=== PATIENT | male | born 1955 | race Caucasian/White ===

== ENCOUNTER → 2018-10-04 | Outpatient (CLI) | payer OTHER ==
[~2018-10-04] MED LIST: ALLO300 PO; CHOL10002 PO; Chest Congesti400 MG PO; DIAZ2 PO; Dexamethasone1 MG PO; LORA.5 PO; Probenecid-Col1 EACH PO
== END | disposition home or self-care (01) ==
LOC: LAB SHORT 14:21 → PLD 14:21
DX: C78.00 Secondary malignant neoplasm of unspecified lung (principal); C79.9 Secondary malignant neoplasm of unspecified site
CPT/HCPCS: 88173

== ENCOUNTER 2018-10-26 07:17 | Day surgery (SDC) | payer OTHER ==
[~2018-10-26] VITALS: Ht 177.8 cm; Wt 64.0 kg
--- NOTE | 2018-10-26 08:00 | NUR ---
Ambulatory in Day Surgery History, Chart, Medications and Allergies reviewed before start of procedure.Lungs clear T/O to Auscultation. Patient confirms NPO status and agrees with scheduled surgery. Patient reports completing Chlorhexadine shower X2 prior to admission to hospital.Surgical site prepped with 2% Chlorhexidine cloth wipe. Patient States Post-Procedure ride home has been arranged.
--- NOTE | 2018-10-26 11:15 | NUR ---
Discharge instructions reviewed with patient. Patient verbalizes understanding. Copy given to patient to take home. Discharged via wheelchair to private car for ride home.PATIENT AND S/O DENY ANY QUESTIONS OR CONCERNS R/T DISCHARGE
== END 2018-10-26 12:00 | disposition home or self-care (01) ==
LOC: ORSCMMR 07:17
PROVIDERS: Surgery
PROC: B5131ZA Fluoroscopy of Right Jugular Veins using Low Osmolar Contrast, Guidance (ICD-10-PCS; principal; 2018-10-26 09:00)
PROC: 05HM33Z Insertion of Infusion Device into Right Internal Jugular Vein, Percutaneous Approach (ICD-10-PCS; principal; 2018-10-26 09:00)
DX: C10.9 Malignant neoplasm of oropharynx, unspecified (principal); I10 Essential (primary) hypertension; R01.1 Cardiac murmur, unspecified; R06.02 Shortness of breath; Z79.899 Other long term (current) drug therapy
CPT/HCPCS: 77001; C1788; J0690; J1100; J1642; J2250; J2405; J3010; J7120

== ENCOUNTER 2018-10-30 09:14 | Day surgery (SDC) | payer OTHER ==
--- NOTE | 2018-10-30 12:25 | NUR ---
PT DENIES ANY PAIN, NAUSEA, SOB. SITE TO R CHECT WALL WITH BANDAID CLEAN DRY INTAT. NO SWELLING. PT REQUESTING TO AMBULATE OUTR
== END 2018-10-30 22:40 | disposition home or self-care (01) ==
LOC: CT 09:14
DX: C78.7 Secondary malignant neoplasm of liver and intrahepatic bile duct (principal); C10.9 Malignant neoplasm of oropharynx, unspecified; C78.02 Secondary malignant neoplasm of left lung; C78.01 Secondary malignant neoplasm of right lung; Z88.5 Allergy status to narcotic agent; I10 Essential (primary) hypertension; M19.90 Unspecified osteoarthritis, unspecified site; M10.9 Gout, unspecified; Z85.810 Personal history of malignant neoplasm of tongue
CPT/HCPCS: 47000; 77012; 88307; 88342

== ENCOUNTER 2019-01-16 21:00 | Inpatient (IN) | payer OTHER ==
[~2019-01-16] VITALS: Ht 172.7 cm; Wt 64.6 kg
[2019-01-16 22:28] LABS: Hematocrit 28.9 % (37.0-53.0); Hemoglobin 9.5 g/dL (13.5-17.5); Mean Corpuscular HGB 33.3 pg (26.0-34.0); Mean Corpuscular HGB Conc 32.9 g/dL (31.5-36.5); Mean Platelet Volume 9.9 fL (9.1-12.4); Platelet Count 251 K/mm3 (150-400); RDW Standard Deviation 80.2 fL (35.1-46.3); Red Blood Cell Count 2.85 M/mm3 (4.30-5.90); White Blood Cell Count 25.49 K/mm3 (4.00-11.30)
[2019-01-16 22:30] LABS: Mean Corpuscular Volume 101 fL (80-100)
[2019-01-16 22:41] LABS: Alanine Aminotransfer (ALT/SGP 20 U/L (12-78); Albumin, Blood 3.3 g/dL (3.4-5.0); Albumin/Globulin Ratio 0.9 (0.8-1.8); Alk Phos 101 U/L (50-136); Anion Gap 18 mmol/L (6-16); Aspartate Aminotrans (AST/SGOT 11 U/L (12-37); Bilirubin, Total 0.2 mg/dL (0.1-1.0); Blood Urea Nitrogen 36 mg/dL (8-24); Bun/Creatinine Ratio 35.3 (12.0-20.0); CO2, Blood 17 mmol/L (21-32); Calcium, Blood 8.2 mg/dL (8.5-10.1); Chloride, Blood 99 mmol/L (98-108); Creatinine, Blood 1.02 mg/dL (0.60-1.20); Globulin, Blood 3.6 g/dL (2.2-4.0); Glomerular Filtration Rate >60 (60-); Glucose, Blood 188 mg/dL (70-99); Potassium, Blood 4.4 mmol/L (3.5-5.5); Sodium, Blood 134 mmol/L (136-145); Total Protein, Blood 6.9 g/dL (6.4-8.2)
[2019-01-16 22:48] LABS: BAND PERCENT MAN 10 % (0-8); BASOPHILS PERCENT MAN 0 % (0-2); EOSINOPHILS PERCENT MAN 0 % (0-6); LYMPHOCYTES ABSOLUTE MAN 2.29 K/mm3 (0.84-5.20); LYMPHOCYTES PERCENT MAN 9 % (21-46); MONOCYTES PERCENT MAN 2 % (4-13); NEUTROPHILS ABSOLUTE MAN 22.68 K/mm3 (1.96-9.15); SEG NEUTROPHILS PERCENT MAN 79 % (41-73); TOTAL CELLS COUNTED 100
--- NOTE | 2019-01-17 02:08 | NUR ---
0208 ADMIT: PT ARRIVES FROM ER VIA GOURNEY WITH SOSIVAN, @ BEDSIDE; TRANSFERS SELF TO BED AND APPEARS IMPULSIVE AND MILDLY UNSTEADY. PT DENIES DIZZINESS, LIGHTHEADEDNESS OR SOB WITH TRANSFER AND AMBULATION INTO ROOM. PT AND SO EDUCATED R/T ROOM, BED, CALL LIGHT AND FALL PRECAUTIONS. PT URINAL PLACED AT BEDSIDE AND BED ALARM ENGAGED. PT ADMITS TO BEING IMPULSIVE AND FORGETFUL @ TIMES AND AGREES TO USE CALL LIGHT PRIOR TO BRP OR GETTING OUT OF BED.
[2019-01-17] MEDS ORDERED: LORA.5 PO (02:18)
--- NOTE | 2019-01-17 02:43 | NUR ---
0243: TELE BOX VERIFIED WITH Edgard GAONA TECH IN PCU. PT NSR @ 61 BPM.
--- NOTE | 2019-01-17 07:37 | NUR ---
SUMMARY: NEW ADMIT SEIZURE ACTIVITY ON HOSPITALIST SERVICE. NO SEIZURE ACTIVITY NOTED THIS SHIFT, VSS, ROOM AIR, AFEBRILE, TELE NS IN 60'S. PT USES CALL LIGHT APPROPRIATELY, REMAINS A&O X4. AWAIT PT VOID FOR URINE SPECIMEN COLLECTION.
[2019-01-17 09:30] LABS: Source, Urine Voided
[2019-01-17 09:40] LABS: Appearance, Urine Clear (Clear); Bilirubin, Urine Neg (Neg); Blood, Urine Neg (Neg); Color, Urine Yellow (P-Yellow); Glucose Qualitative, Urine Neg (Neg); Ketones, Urine Neg (Neg); Leukocyte Esterase, Urine Neg (Neg); Nitrite, Urine Neg (Neg); Protein, Urine Neg (Neg); Urobilinogen, Urine NORM (Normal); pH, Urine 6.5 (5.0-8.0)
[2019-01-17 09:49] LABS: Alanine Aminotransfer (ALT/SGP 18 U/L (12-78); Albumin, Blood 3.1 g/dL (3.4-5.0); Albumin/Globulin Ratio 0.9 (0.8-1.8); Alk Phos 92 U/L (50-136); Anion Gap 7 mmol/L (6-16); Aspartate Aminotrans (AST/SGOT 14 U/L (12-37); Bilirubin, Total 0.4 mg/dL (0.1-1.0); Blood Urea Nitrogen 28 mg/dL (8-24); Bun/Creatinine Ratio 29.4 (12.0-20.0); CO2, Blood 25 mmol/L (21-32); Calcium, Blood 8.2 mg/dL (8.5-10.1); Chloride, Blood 99 mmol/L (98-108); Creatinine, Blood 0.95 mg/dL (0.60-1.20); Globulin, Blood 3.4 g/dL (2.2-4.0); Glomerular Filtration Rate >60 (60-); Glucose, Blood 89 mg/dL (70-99); Sodium, Blood 131 mmol/L (136-145); Total Protein, Blood 6.5 g/dL (6.4-8.2)
[2019-01-17 09:58] LABS: Hematocrit 26.6 % (37.0-53.0); Hemoglobin 8.7 g/dL (13.5-17.5); Mean Corpuscular HGB 32.2 pg (26.0-34.0); Mean Corpuscular HGB Conc 32.7 g/dL (31.5-36.5); Mean Corpuscular Volume 99 fL (80-100); Mean Platelet Volume 9.7 fL (9.1-12.4); Platelet Count 215 K/mm3 (150-400); RDW Coefficient Variation 21.8 % (11.7-14.2); RDW Standard Deviation 77.3 fL (35.1-46.3); White Blood Cell Count 17.07 K/mm3 (4.00-11.30)
--- NOTE | 2019-01-17 19:13 | NUR ---
PT A/OX3, PLEASANT AND COOPERATIVE, THE PT IS UP WITH 1 ASSIST TO THE BATHROOM, THE PT APPEARED TO BE BREATHING EASILY T/O THE SHIFT, THE PT DENIED ANY PAIN TODAY, THIS AFTERNOON THE PT HAD AN EPISODE IN WHICH HE WAS HALUCINATING AND HAD A BLANK STARE ON HIS FACE, DID NOT APPEAR TO BE SEIZURE ACTIVTY AT THAT TIME, FAMILY HAS BEEN WITH THE PT T/O THE DAY, DR. ONEIL WAS CONSULTED THIS AM, HOWEVER HAS NOT BEEN IN TO SEE THE PT SO FAR THIS SHIFT, CALL LIGHT IN REACH, WILL CONTINUE TO MONITOR AND ASSESS FOR CHANGES
--- NOTE | 2019-01-18 04:59 | NUR ---
SHIFT SUMMARY PT SLEPT FAIR, REQUESTED HOME DOSE OF PO ATIVAN SO THAT HE COULD SLEEP. HOSPITALIST CALLD AND ORDER RECEIVED. IVF'S INFUSING PER PUMP WITHOUT DIFFICULTY. WENT HOME FOR THE NIGHT. PT REQUESTED TYLENOL FOR THE CHILLS EARLY ON IN THE EVENING. TELE SHOWS NSR. NO ACUTE EVENTS NOTED DURING THE NIGHT, WILL CONTINUE TO MONITOR.
[2019-01-18 05:06] LABS: BASOPHILS ABSOLUTE AUTO 0.02 K/mm3 (0.00-0.23); BASOPHILS PERCENT AUTO 0 % (0-2); EOSINOPHILS ABSOLUTE AUTO 0.01 K/mm3 (0.00-0.68); EOSINOPHILS PERCENT AUTO 0 % (0-6); Hemoglobin 8.4 g/dL (13.5-17.5); IMMATURE GRAN ABSOLUTE AUTO 0.12 K/mm3 (0.00-0.10); IMMATURE GRAN PERCENT AUTO 1 % (0-1); LYMPHOCYTES ABSOLUTE AUTO 2.07 K/mm3 (0.84-5.20); LYMPHOCYTES PERCENT AUTO 16 % (21-46); MONOCYTES ABSOLUTE AUTO 0.58 K/mm3 (0.16-1.47); MONOCYTES PERCENT AUTO 5 % (4-13); Mean Corpuscular HGB 33.3 pg (26.0-34.0); Mean Corpuscular HGB Conc 33.6 g/dL (31.5-36.5); Mean Corpuscular Volume 99 fL (80-100); Mean Platelet Volume 9.2 fL (9.1-12.4); NEUTROPHILS ABSOLUTE AUTO 10.04 K/mm3 (1.96-9.15); NEUTROPHILS PERCENT AUTO 78 % (41-73); Platelet Count 176 K/mm3 (150-400); RDW Coefficient Variation 20.9 % (11.7-14.2); RDW Standard Deviation 75.5 fL (35.1-46.3); Red Blood Cell Count 2.52 M/mm3 (4.30-5.90); White Blood Cell Count 12.84 K/mm3 (4.00-11.30)
[2019-01-18 05:58] LABS: Albumin, Blood 2.9 g/dL (3.4-5.0); Anion Gap 8 mmol/L (6-16); Blood Urea Nitrogen 21 mg/dL (8-24); Bun/Creatinine Ratio 25.1 (12.0-20.0); CO2, Blood 26 mmol/L (21-32); Calcium, Blood 7.6 mg/dL (8.5-10.1); Chloride, Blood 94 mmol/L (98-108); Creatinine, Blood 0.84 mg/dL (0.60-1.20); Glomerular Filtration Rate >60 (60-); Glucose, Blood 86 mg/dL (70-99); Phosphorus, Blood 3.1 mg/dL (2.5-4.9); Potassium, Blood 3.3 mmol/L (3.5-5.5); Sodium, Blood 128 mmol/L (136-145)
--- NOTE | 2019-01-18 15:16 | NUR ---
Pt. is in bed resting doing delia burns pt.
--- NOTE | 2019-01-18 18:56 | NUR ---
NOTIFIED DR. CONN PT PULLED IV OUT AND IS CONFUSED. DR. CONN SAID TO PLACE ANOTHER IV FOR ANTIBIOTICS. NOTIFIED ROUTE SALES TRAINEE, SKYLAR PT PULLED OUT IV, UNSTEADY ON THEIR FEET, CONFUSED, ATTEMPTING TO GET OUT OF BED AND DOES NOT CALL APPROPRIATELY. PT MOVED TO SPECIAL CARE UNIT. REPORT GIVEN TO MARIAH WALLER.
--- NOTE | 2019-01-18 22:23 | NUR ---
PATIENT INCREASED CONFUSION. SPOUSE/RN REQUEST ATIVAN 1 MG PRN FOR THIS EVENING. HOSPITALIST DR MAIN ORDERED ATIVAN PO 1 MG X ONE.
--- NOTE | 2019-01-18 23:12 | NUR ---
FAMILY/FRIEND RN REPORTS PATIENT HAVING VISUAL HALLUCINATIONS FOR FIRST TIME. WILL CONTINUE TO MONITOR.
--- NOTE | 2019-01-19 00:46 | NUR ---
PATIENT CONFUSION INCREASING. 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 PATIENT PULLING AT IV AND PULLED HUB OFF. PATIENT REPORTS HE WANTS TO GET UP AND EXIT BED. PATIENT PULLING AT TELE LEADS AND BP CUFF ATTACHED TO BED. PATIENT UNABLE TO REORIENT AT THIS TIME. RESTLESS ARM AND HANDS PULLING APART TELE BOX. BED ALARM ACITVATED. WILL CONTINUE TO MONITOR.
--- NOTE | 2019-01-19 00:56 | NUR ---
PATIENT HAVING VISUAL HALLUCINATIONS TALKING ABOUT A GOLF TOURNAMENT WITH NO ONE IN ROOM.
--- NOTE | 2019-01-19 01:10 | NUR ---
PATIENT BED EXIT AND RESISTING STAFF TO GET BACK INTO BED. PATIENT ASKING IF WE ARE TAKING FLYING LESSONS IN MORNING. PATIENT REORIENTED INTO BED. WILL CONTINUE TO MONITOR.
--- NOTE | 2019-01-19 02:50 | NUR ---
PATIENT HALLUCINATING AND SETTING OFF BED ALARM SWINGING LEGS OFF BED TRYING TO EXIT X 3. PATIENT BACK INTO BED AND BED ALARM ACTIVATED.
--- NOTE | 2019-01-19 03:18 | NUR ---
HOSPITALIST DR MARIANO ORDERED RACHNA VEST AND BILATERAL SOFT WRIST RESTRAINTS. PATIENT WITH INCREASED AGITATION AND HOSPITALIST ORDERED ATIVAN .5 MG PO X ONE.
--- NOTE | 2019-01-19 03:40 | NUR ---
SHIFT SUMMARY PATIENT IS HAVING INCREASED CONFUSION AND VISUAL HALLUCINATIONS. SIGNIFICANT OTHER-RN REPORTS THESE ARE BOTH NEW. ALSO NOTED IS INCREASED RESTLESS ARMS AND HANDS PULLING AT IV, CORDS, TELE LEADS AND TELE BOX PULLED APART. PATIENT PULLING AT SIDE RAILS AND INCREASE AGIATATION. PATIENT NOT ABLE TO REORIENT AT THIS TIMES. HOSPITALIST DR MARIANO ORDERED RACHNA VEST AND BILATERAL SOFT WRIST RESTRAINTS. PIV REMAINS INTACT. IV ABX INFUSED. X RAY EXAMINER OF AIRCRAFT REPORTS NSR/PVC AT 84. TAKES MEDS WHOLE WITH WATER. DENIES PAIN, SOB, AND N/V. ATIVAN PO 1 MG GIVEN X ONE AT START OF SHIFT AND .5 MG ATIVAN PO GIVEN X ONE FOR AGITATION ORDERD BY HOSPITALIST. CALL LIGHT IN REACH. BED IN LOWEST POSITION. BED ALARM ACTIVATED. WILL CONTINUE TO MONITOR UNTIL DAY SHIFT NURSE ASSUMES CARE.
[2019-01-19 05:30] LABS: BASOPHILS ABSOLUTE AUTO 0.01 K/mm3 (0.00-0.23); BASOPHILS PERCENT AUTO 0 % (0-2); EOSINOPHILS ABSOLUTE AUTO 0.02 K/mm3 (0.00-0.68); EOSINOPHILS PERCENT AUTO 0 % (0-6); Hematocrit 26.5 % (37.0-53.0); Hemoglobin 9.2 g/dL (13.5-17.5); IMMATURE GRAN ABSOLUTE AUTO 0.05 K/mm3 (0.00-0.10); IMMATURE GRAN PERCENT AUTO 1 % (0-1); LYMPHOCYTES ABSOLUTE AUTO 2.43 K/mm3 (0.84-5.20); LYMPHOCYTES PERCENT AUTO 22 % (21-46); MONOCYTES ABSOLUTE AUTO 0.57 K/mm3 (0.16-1.47); MONOCYTES PERCENT AUTO 5 % (4-13); Mean Corpuscular HGB 33.2 pg (26.0-34.0); Mean Corpuscular HGB Conc 34.7 g/dL (31.5-36.5); Mean Platelet Volume 9.7 fL (9.1-12.4); NEUTROPHILS PERCENT AUTO 72 % (41-73); Platelet Count 169 K/mm3 (150-400); RDW Coefficient Variation 20.4 % (11.7-14.2); RDW Standard Deviation 70.4 fL (35.1-46.3); Red Blood Cell Count 2.77 M/mm3 (4.30-5.90); White Blood Cell Count 10.98 K/mm3 (4.00-11.30)
[2019-01-19 05:34] LABS: Mean Corpuscular Volume 96 fL (80-100)
--- NOTE | 2019-01-19 05:46 | NUR ---
PATIENT HAVING AUDITORY HALLUCINATIONS. WILL CONTINUE TO MONITOR.
[2019-01-19 05:47] LABS: Albumin, Blood 3.2 g/dL (3.4-5.0); Anion Gap 12 mmol/L (6-16); Blood Urea Nitrogen 26 mg/dL (8-24); Bun/Creatinine Ratio 27.8 (12.0-20.0); CO2, Blood 23 mmol/L (21-32); Calcium, Blood 7.9 mg/dL (8.5-10.1); Chloride, Blood 90 mmol/L (98-108); Creatinine, Blood 0.94 mg/dL (0.60-1.20); Glomerular Filtration Rate >60 (60-); Glucose, Blood 94 mg/dL (70-99); Phosphorus, Blood 2.4 mg/dL (2.5-4.9); Potassium, Blood 3.7 mmol/L (3.5-5.5); Sodium, Blood 125 mmol/L (136-145)
--- NOTE | 2019-01-19 18:43 | NUR ---
SHIFT SUMMARY PATIENT PLEASANT. STILL GAINING MORE CONFUSION. DOCTOR IS AWARE. ALL ANTIBIOTICS HAVE BEEN STOPPED AT THIS TIME AND FLUIDS HAVE BEEN STARTED.
--- NOTE | 2019-01-19 22:43 | NUR ---
LEFT SIDE PERIPHERAL VISION DEFICIT NOTED WHEN UP TO SHOWER. PATIENT NOT ABLE TO ORIENT TO LEFT SIDE WHEN ASKED. TAKES A FEW REMINDERS FOR PATIENT TO TURN TO LEFT.
--- NOTE | 2019-01-20 03:21 | NUR ---
SHIFT SUMMARY PATIENT HAVING NEW LEFT SIDE PERIPHERAL VISION DEFICIT. NOTED WHEN PATIENT UP TO TAKE A SHOWER AND NOT ABLE TO ORIENT TO THE LEFT SIDE WHEN GIVEN DIRECTIONS WHICH WAY TO TURN. SIGNIFICANT OTHER PRESENT FOR HALF THE SHIFT. AXOX 2-3 WITH CONFUSION. NO VISUAL OR AUDITORY HALLUCINATIONS NOTED. PIV REMAINS INTACT. NS INFUSING AT 30 mL/HR. DENIES PAIN, SOB, AND N/V. VSS/AFEBRILE. RESTRAINT MANAGEMENT. LESS AGITATION NOTED. PATIENT OUT OF RESTRAINTS WHEN SIGNIFICANT OTHER-RN PRESENT. CALL LIGHT IN REACH. BED IN LOWEST POSITION. BED ALARM ACTIVATED. WILL CONTINUE TO MONITOR UNTIL DAY SHIFT NURSE ASSUMES CARE.
[2019-01-20 05:08] LABS: BASOPHILS ABSOLUTE AUTO 0.01 K/mm3 (0.00-0.23); BASOPHILS PERCENT AUTO 0 % (0-2); EOSINOPHILS ABSOLUTE AUTO 0.04 K/mm3 (0.00-0.68); EOSINOPHILS PERCENT AUTO 1 % (0-6); Hematocrit 24.6 % (37.0-53.0); Hemoglobin 8.7 g/dL (13.5-17.5); IMMATURE GRAN ABSOLUTE AUTO 0.03 K/mm3 (0.00-0.10); IMMATURE GRAN PERCENT AUTO 1 % (0-1); LYMPHOCYTES ABSOLUTE AUTO 1.93 K/mm3 (0.84-5.20); LYMPHOCYTES PERCENT AUTO 38 % (21-46); MONOCYTES ABSOLUTE AUTO 0.34 K/mm3 (0.16-1.47); MONOCYTES PERCENT AUTO 7 % (4-13); Mean Corpuscular HGB 34.5 pg (26.0-34.0); Mean Corpuscular HGB Conc 35.4 g/dL (31.5-36.5); Mean Corpuscular Volume 98 fL (80-100); Mean Platelet Volume 9.6 fL (9.1-12.4); NEUTROPHILS ABSOLUTE AUTO 2.72 K/mm3 (1.96-9.15); NEUTROPHILS PERCENT AUTO 54 % (41-73); Platelet Count 145 K/mm3 (150-400); RDW Standard Deviation 71.6 fL (35.1-46.3); Red Blood Cell Count 2.52 M/mm3 (4.30-5.90); White Blood Cell Count 5.07 K/mm3 (4.00-11.30)
[2019-01-20 05:30] LABS: Albumin, Blood 2.8 g/dL (3.4-5.0); Anion Gap 10 mmol/L (6-16); Blood Urea Nitrogen 23 mg/dL (8-24); Bun/Creatinine Ratio 29.3 (12.0-20.0); CO2, Blood 23 mmol/L (21-32); Calcium, Blood 7.5 mg/dL (8.5-10.1); Chloride, Blood 91 mmol/L (98-108); Creatinine, Blood 0.79 mg/dL (0.60-1.20); Glomerular Filtration Rate >60 (60-); Glucose, Blood 93 mg/dL (70-99); Phosphorus, Blood 2.3 mg/dL (2.5-4.9); Potassium, Blood 3.5 mmol/L (3.5-5.5); Sodium, Blood 124 mmol/L (136-145)
--- NOTE | 2019-01-20 07:00 | NUR ---
RECEIVED REPORT FROM MARIAH DICKSON; PT CURRENTLY NOT IN RESTRAINTS. RESTING WITH EYES CLOSED; RR EVEN AND UNLABORED. BED ALARM ACTIVATED.
[2019-01-20 12:23] LABS: Anion Gap 9 mmol/L (6-16); Blood Urea Nitrogen 24 mg/dL (8-24); Bun/Creatinine Ratio 30.8 (12.0-20.0); CO2, Blood 23 mmol/L (21-32); Calcium, Blood 7.6 mg/dL (8.5-10.1); Chloride, Blood 92 mmol/L (98-108); Creatinine, Blood 0.78 mg/dL (0.60-1.20); Glomerular Filtration Rate >60 (60-); Glucose, Blood 139 mg/dL (70-99); Potassium, Blood 3.3 mmol/L (3.5-5.5); Sodium, Blood 124 mmol/L (136-145)
[2019-01-20 12:25] LABS: CHOL/HDL RATIO 5.3; Cholesterol 219 mg/dL (50-200); HDL Cholesterol 41 mg/dL (>39); LDL/HDL RATIO 3.6; Low Density Lipoprotein Chol 149 mg/dL (0-110); Triglycerides 144 mg/dL (30-160); Very Low Density Lipoprot Chol 28 mg/dL (6-32)
--- NOTE | 2019-01-20 14:06 | NUR ---
PT SLEEPING RR EVEN AND UNLABORED
[2019-01-20 16:28] LABS: Anion Gap 6 mmol/L (6-16); Blood Urea Nitrogen 24 mg/dL (8-24); Bun/Creatinine Ratio 27.5 (12.0-20.0); CO2, Blood 26 mmol/L (21-32); Calcium, Blood 7.5 mg/dL (8.5-10.1); Chloride, Blood 91 mmol/L (98-108); Creatinine, Blood 0.87 mg/dL (0.60-1.20); Glomerular Filtration Rate >60 (60-); Glucose, Blood 119 mg/dL (70-99); Potassium, Blood 3.9 mmol/L (3.5-5.5); Sodium, Blood 123 mmol/L (136-145)
--- NOTE | 2019-01-20 18:17 | NUR ---
SHIFT SUMMARY CANCER WITH METS. NEW CVA ON MRI TODAY. PERIPHERAL NEGLECT. 1-2 PERSON TRANSFER. EATING AND DRINKING WELL. CONFUSED. PT'S SIGNIFICANT OTHER IS [facility] HOSPICE NURSE. DECONDITIONED. PLEASANT, COOPERATIVE. NA LOW (123). INCONTINENT.
--- NOTE | 2019-01-21 00:51 | NUR ---
PATIENT ACTIVATED BED ALARM TRYING TO MOVE TO SIDE OF BED. RACHNA VEST READJUSTED. CALL LIGHT IN REACH.
--- NOTE | 2019-01-21 03:37 | NUR ---
SHIFT SUMMARY PATIENT HAD NO ACUTE CHANGES OBSERVED THIS SHIFT. FAMILY AND SIGNIFICANT OTHER-RN PRESENT FIRST HALF OF SHIFT. AXOX 2-3 W/CONFUSION. TAKES MEDS WHOLE WITH WATER. ONE ASSIST TO BATHROOM. VSS/AFEBRILE. DENIES PAIN, SOB, AND N/V. PIV REMAINS INTACT. LASIX 20 MG X ONE GIVEN PER EMAR. RESTRAINT MANAGEMENT. NO HALLUCINATIONS. NS INFUSING AT 50 mL/HR. PATIENT AGITATED FOR AN HOUR AND BACK RESTING. SOLAR INSTALLATION MANAGER REPORTS NSR 64. CALL LIGHT IN REACH. BED IN LOWEST POSITION. WILL CONTINUE TO MONITOR UNTIL DAY SHIFT NURSE ASSUMES CARE.
[2019-01-21 06:46] LABS: BASOPHILS PERCENT AUTO 0 % (0-2); EOSINOPHILS ABSOLUTE AUTO 0.05 K/mm3 (0.00-0.68); EOSINOPHILS PERCENT AUTO 1 % (0-6); Hematocrit 26.9 % (37.0-53.0); Hemoglobin 9.1 g/dL (13.5-17.5); IMMATURE GRAN ABSOLUTE AUTO 0.02 K/mm3 (0.00-0.10); IMMATURE GRAN PERCENT AUTO 0 % (0-1); LYMPHOCYTES ABSOLUTE AUTO 2.28 K/mm3 (0.84-5.20); LYMPHOCYTES PERCENT AUTO 49 % (21-46); MONOCYTES ABSOLUTE AUTO 0.42 K/mm3 (0.16-1.47); MONOCYTES PERCENT AUTO 9 % (4-13); Mean Corpuscular HGB 34.1 pg (26.0-34.0); Mean Corpuscular HGB Conc 33.8 g/dL (31.5-36.5); Mean Platelet Volume 9.3 fL (9.1-12.4); NEUTROPHILS ABSOLUTE AUTO 1.85 K/mm3 (1.96-9.15); NEUTROPHILS PERCENT AUTO 40 % (41-73); Platelet Count 135 K/mm3 (150-400); RDW Coefficient Variation 20.2 % (11.7-14.2); RDW Standard Deviation 75.3 fL (35.1-46.3); Red Blood Cell Count 2.67 M/mm3 (4.30-5.90); White Blood Cell Count 4.62 K/mm3 (4.00-11.30)
[2019-01-21 06:47] LABS: Mean Corpuscular Volume 101 fL (80-100)
[2019-01-21 07:08] LABS: Albumin, Blood 2.9 g/dL (3.4-5.0); Anion Gap 9 mmol/L (6-16); Blood Urea Nitrogen 20 mg/dL (8-24); Bun/Creatinine Ratio 25.4 (12.0-20.0); CO2, Blood 22 mmol/L (21-32); Calcium, Blood 7.7 mg/dL (8.5-10.1); Chloride, Blood 92 mmol/L (98-108); Creatinine, Blood 0.79 mg/dL (0.60-1.20); Glomerular Filtration Rate >60 (60-); Glucose, Blood 88 mg/dL (70-99); Phosphorus, Blood 2.1 mg/dL (2.5-4.9); Potassium, Blood 3.5 mmol/L (3.5-5.5); Sodium, Blood 123 mmol/L (136-145)
--- NOTE | 2019-01-21 11:35 | NUR ---
echocardiogram complete
--- NOTE | 2019-01-21 17:02 | NUR ---
SUMMARY PT HAD MRI HEAD YESTERDAY, DR MARMOLEJO EXPLAIN TO PT/FAMILY +CVA. HE HAS L EYE VISUAL DEFICITS/NEGLECT. L ARM UNCOORDINATION. WOOD TANK BUILDER & DORSIFLEX STRONG. PT/OT EVAL TODAY. ST EVAL, ORDER PUREE/NECTAR THICK DIET W SUPERVISION. PT IS ABLE TO ANSWER BASIC QUESTIONS, RECALL EVENTS, RECOGNIZE FAMILY HOWEVER @ X'S MAKES BIZZARE STATEMENTS, DISORIENTED. ECHO DONE TODAY. PT HAS HX TONGUE CA W METS, RECNT CHEMO TX, DR ONEIL IN TO SEE PT/FAMILY THIS AFTERNOON & DISCUSS FUTURE TX. VSS.
[2019-01-22 06:05] LABS: BASOPHILS PERCENT AUTO 0 % (0-2); EOSINOPHILS ABSOLUTE AUTO 0.03 K/mm3 (0.00-0.68); EOSINOPHILS PERCENT AUTO 1 % (0-6); Hematocrit 24.8 % (37.0-53.0); Hemoglobin 8.7 g/dL (13.5-17.5); IMMATURE GRAN ABSOLUTE AUTO 0.03 K/mm3 (0.00-0.10); IMMATURE GRAN PERCENT AUTO 1 % (0-1); LYMPHOCYTES ABSOLUTE AUTO 1.82 K/mm3 (0.84-5.20); LYMPHOCYTES PERCENT AUTO 38 % (21-46); MONOCYTES ABSOLUTE AUTO 0.43 K/mm3 (0.16-1.47); MONOCYTES PERCENT AUTO 9 % (4-13); Mean Corpuscular HGB 35.1 pg (26.0-34.0); Mean Corpuscular HGB Conc 35.1 g/dL (31.5-36.5); Mean Corpuscular Volume 100 fL (80-100); Mean Platelet Volume 9.6 fL (9.1-12.4); NEUTROPHILS ABSOLUTE AUTO 2.54 K/mm3 (1.96-9.15); NEUTROPHILS PERCENT AUTO 52 % (41-73); Platelet Count 146 K/mm3 (150-400); RDW Coefficient Variation 19.8 % (11.7-14.2); RDW Standard Deviation 72.1 fL (35.1-46.3); Red Blood Cell Count 2.48 M/mm3 (4.30-5.90); White Blood Cell Count 4.85 K/mm3 (4.00-11.30)
[2019-01-22 06:20] LABS: Albumin, Blood 2.8 g/dL (3.4-5.0); Anion Gap 10 mmol/L (6-16); Blood Urea Nitrogen 19 mg/dL (8-24); Bun/Creatinine Ratio 23.1 (12.0-20.0); CO2, Blood 22 mmol/L (21-32); Calcium, Blood 7.6 mg/dL (8.5-10.1); Chloride, Blood 94 mmol/L (98-108); Creatinine, Blood 0.82 mg/dL (0.60-1.20); Glomerular Filtration Rate >60 (60-); Glucose, Blood 87 mg/dL (70-99); Phosphorus, Blood 1.9 mg/dL (2.5-4.9); Potassium, Blood 3.2 mmol/L (3.5-5.5); Sodium, Blood 126 mmol/L (136-145)
--- NOTE | 2019-01-22 06:45 | NUR ---
SHIFT SUMMARY PATIENT IS ALERT AND ORIENTED TO SELF AND PLACE, HOWEVER SAYS RANDOM THINGS LIKE " HELP ME BUILD THIS DOOR FRAME". PATIENT NEGLECTS LEFT SIDE WITH EYE MOVEMENT, ARM, AND LEG. PATIENT IS ABLE TO STAND AND USES URINAL AND IS INCONTINENT. DOES NOT FOLLOW COMMANDS WELL, LIKELY DUE TO THE POOR COORDINATION ON LEFT SIDE. BILATERAL WRIST RESTRAINTS ON, PATIENT CONTINUED TO GET OUT OF THE BED WITHOUT CALLING. HARD TO REDIREC BACK TO BED. CALL LIGHT IN REACH. VITALS STABLE.
--- NOTE | 2019-01-22 17:35 | NUR ---
SUMMARY PT CONTINUES TO DEMONSTRATE L SIDED NEGLEGT, L VISUAL DEFICITS. L ARM CONTINUES UNCOORDINATED HOWEVER IMPROVED FROM PREVIOUS DAY. PARTICIPATED W PT/OT TODAY. UP IN CHAIR FOR ALL MEALS W SUPERVISION. INTERACT W MULT FAMILY MEMBERS/VISITORS. HE IS SOMEWHAT FATIGUED, NAPS INTERMITTANTLY. NA+, K+ LOW, IV SUPPLEMENTS PROVIDED. VSS. SOCSERV STATE PLAN FOR IRU WHEN APPROP.
--- NOTE | 2019-01-23 03:45 | NUR ---
SHIFT SUMMARY PT SLEEPING IN CHAIR AT BS DURING SHIFT REPORT. PT'S BESIDE HIM. PT LATER ASSISTED INTO BED BY REFRIGERATION INSTALLER. REMAINED IN RM UNTIL PT WENT TO SLEEP FOR THE NIGHT. PT C/O [place] "AT THE BASE OF THE NECK" AND WAS MEDICATED WITH TYLENOL. PT ALSO HAVING HICCUPS; MEDICATED WITH REGLAN PER REQUEST. MEDS ADMIN CRUSHED IN ICE CREAM. 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 PUREE DIET WITH THICKENED LIQUIDS. PT WITH FLAT AFFECT. HAS SOME DIFFICULTY FOLLOWING DIRECTIONS. L EYE VEERS FAR LEFT. L SIDE EXTREMITIES VERY WEAK. MEPILEX TO L HIP; PER SHIFT REPORT, L HIP ABRASIONS D/T BLISTERS FROM UNKNOWN CAUSE. PT CONTINUES TO REST QUIETLY. NO S/SX OF DISTRESS NOTED. RESP E/U. SR @ 69 PER TELE MX. CALL LT IN REACH.
[2019-01-23 04:57] LABS: BASOPHILS PERCENT AUTO 0 % (0-2); EOSINOPHILS ABSOLUTE AUTO 0.02 K/mm3 (0.00-0.68); EOSINOPHILS PERCENT AUTO 1 % (0-6); Hemoglobin 7.8 g/dL (13.5-17.5); IMMATURE GRAN ABSOLUTE AUTO 0.03 K/mm3 (0.00-0.10); IMMATURE GRAN PERCENT AUTO 1 % (0-1); LYMPHOCYTES ABSOLUTE AUTO 1.15 K/mm3 (0.84-5.20); LYMPHOCYTES PERCENT AUTO 26 % (21-46); MONOCYTES ABSOLUTE AUTO 0.25 K/mm3 (0.16-1.47); MONOCYTES PERCENT AUTO 6 % (4-13); Mean Corpuscular HGB 34.7 pg (26.0-34.0); Mean Corpuscular HGB Conc 35.5 g/dL (31.5-36.5); Mean Corpuscular Volume 98 fL (80-100); Mean Platelet Volume 9.8 fL (9.1-12.4); NEUTROPHILS ABSOLUTE AUTO 2.99 K/mm3 (1.96-9.15); NEUTROPHILS PERCENT AUTO 67 % (41-73); Platelet Count 157 K/mm3 (150-400); RDW Coefficient Variation 20.3 % (11.7-14.2); RDW Standard Deviation 72.6 fL (35.1-46.3); Red Blood Cell Count 2.25 M/mm3 (4.30-5.90); White Blood Cell Count 4.44 K/mm3 (4.00-11.30)
[2019-01-23 05:25] LABS: Albumin, Blood 2.6 g/dL (3.4-5.0); Anion Gap 9 mmol/L (6-16); Blood Urea Nitrogen 17 mg/dL (8-24); CO2, Blood 23 mmol/L (21-32); Calcium, Blood 7.7 mg/dL (8.5-10.1); Chloride, Blood 95 mmol/L (98-108); Creatinine, Blood 0.85 mg/dL (0.60-1.20); Glomerular Filtration Rate >60 (60-); Glucose, Blood 98 mg/dL (70-99); Phosphorus, Blood 2.8 mg/dL (2.5-4.9); Potassium, Blood 3.1 mmol/L (3.5-5.5); Sodium, Blood 127 mmol/L (136-145)
[2019-01-23 05:27] LABS: Magnesium, Blood 1.1 mg/dL (1.6-2.4)
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
--- NOTE | 2019-01-24 05:14 | NUR ---
SHIFT SUMMARY PT AWAKE WITH VISITORS IN AT START OF SHIFT. RECEIVED REPORT, PT TO RECIEVE 1 UNIT PRBC'S. PT'S INFORMED WHEN LEAVING AND SIGNED BLOOD CONSENT PER PT REQUEST. HS MEDS GIVEN AND BLOOD STARTED AFTER THAT. PT CO-OP. TOLERATED WELL. UP TO EOB DURING TRANSFUSION, NEEDING URINAL; SETTING BED ALARM OFF. PT RESTED WELL THRU OUT THE NIGHT. VS REMAINED STABLE. PT DENIED NEEDS. NO C/O. PER SHIFT REPORT, PT'S FRIENDS IN EARLIER IN THE DAY PROVIDED CANDY BARS AND STRAWS FOR DRINKING. PER REPORT, PT FOUND COUGHING AFTERWARDS BY DAY RN. STRAWS AND ERIKA REMOVED FOR PT SAFETY. PT FOUND WITH HICCUPS AGAIN AT START OF SHIFT LAST NIGHT. REGLAN GIVEN PER EMAR AND REQUEST. BED ALARM REMAINS ON FOR SAFETY. CALL LT IN REACH, THOUGH PT HAS NOT USED THIS SHIFT.
[2019-01-24 05:28] LABS: BASOPHILS ABSOLUTE AUTO 0.01 K/mm3 (0.00-0.23); BASOPHILS PERCENT AUTO 0 % (0-2); EOSINOPHILS ABSOLUTE AUTO 0.02 K/mm3 (0.00-0.68); EOSINOPHILS PERCENT AUTO 0 % (0-6); Hematocrit 25.7 % (37.0-53.0); Hemoglobin 8.9 g/dL (13.5-17.5); IMMATURE GRAN ABSOLUTE AUTO 0.03 K/mm3 (0.00-0.10); IMMATURE GRAN PERCENT AUTO 1 % (0-1); LYMPHOCYTES PERCENT AUTO 33 % (21-46); MONOCYTES ABSOLUTE AUTO 0.31 K/mm3 (0.16-1.47); MONOCYTES PERCENT AUTO 6 % (4-13); Mean Corpuscular HGB Conc 34.6 g/dL (31.5-36.5); Mean Corpuscular Volume 98 fL (80-100); Mean Platelet Volume 9.7 fL (9.1-12.4); NEUTROPHILS ABSOLUTE AUTO 3.16 K/mm3 (1.96-9.15); NEUTROPHILS PERCENT AUTO 60 % (41-73); Platelet Count 141 K/mm3 (150-400); RDW Coefficient Variation 19.7 % (11.7-14.2); RDW Standard Deviation 70.7 fL (35.1-46.3); Red Blood Cell Count 2.62 M/mm3 (4.30-5.90); White Blood Cell Count 5.23 K/mm3 (4.00-11.30)
[2019-01-24 05:52] LABS: Albumin, Blood 2.4 g/dL (3.4-5.0); Anion Gap 8 mmol/L (6-16); Blood Urea Nitrogen 19 mg/dL (8-24); Bun/Creatinine Ratio 22.2 (12.0-20.0); CO2, Blood 25 mmol/L (21-32); Calcium, Blood 7.9 mg/dL (8.5-10.1); Chloride, Blood 98 mmol/L (98-108); Creatinine, Blood 0.86 mg/dL (0.60-1.20); Glomerular Filtration Rate >60 (60-); Glucose, Blood 91 mg/dL (70-99); Magnesium, Blood 1.4 mg/dL (1.6-2.4); Phosphorus, Blood 1.9 mg/dL (2.5-4.9); Potassium, Blood 3.8 mmol/L (3.5-5.5); Sodium, Blood 131 mmol/L (136-145)
--- NOTE | 2019-01-24 07:00 | NUR ---
ASSUMED CARE OF PT- PER REPORT PT HIGH FALL RISK AND FREQUENTLY TRIES TO GET UP WITHOUT ASSISTANCE, HAD BEEN IN RESTRAINTS FOR SAFETY, BUT CURRENTLY IS NO LONGER IN RESTRAINTS. PER REPORT PT REQUESTED THAT SHE BE CALLED TO SIT WITH HIM 1:1 RATHER THAN USE RESTRAINTS. PT BEHAVIOR THIS MORNING IS PLEASENT, MILDLY CONFUSED.
--- NOTE | 2019-01-24 11:25 | NUR ---
PT HAD SOME ACTIVITY THAT LOOKED LIKE A SEIZURE. PT EYES ROLLED BACK, BREATHING BECAME EXTREMELY SHALLOW AND RAPID, HEAD TURNED TO THE LEFT AND FACE PULLED TO THE LEFT, ARMS PULLED IN TOWARDS THE PT FACE AND HE MADE SMALL TWITCHES AND JERKS. PT WAS NON-RESPONSIVE DURRING THE EVENT. PT VITALS TAKEN POST EVENT, SBP 117. PT RESP RATE 24. WHEN ASKED IF HE REMEMBERED WHAT JUST HAPPENED, PT STATED "I COULDN'T BREATHE." DR CONN NOTIFIED.
--- NOTE | 2019-01-24 13:56 | NUR ---
CALLED DR CONN- PT FAMILY REQUESTED A NEUROLOGY CONSULT FOR THIS NEW UNDETERMINED ACTIVITY, PT WEAKNESS HAS INCREASED SINCE THE START OF THE SHIFT, THIS COULD BE EVOLUTION OF THE STROKE, REQUESTED A REPEAT HEAD CT AND NEUROLOGY CONSULT. DR CONN WILL ATTEMPT TO CONSULT NEUROLOGY IF AVAILABLE.
--- NOTE | 2019-01-24 18:25 | NUR ---
SHIFT SUMMARY- PT WAS SEEN BY NEUROLOGY. STARTED ON SEIZURE PREVENTION MEDICATION LEVITIRACETAM FIRST DOSE NOW IV THEN BID PO AFTER THAT. PT HAD A REPEAT CT SCAN THAT SHOWS ISCHEMIC AREA PREVIOUSLY NOTED IN MRI. CT SCAN ON ADMIT NEGATIVE FOR INFARCT. PT HAD SOME SEIZURE LIKE ACTIVITY. SPOKE TO DR RAE ABOUT THIS. HE IS AWARE. SEE PREVIOUS NOTES FOR DETAILS. PT SIGNIFICANT OTHER, SIBLINGS, AND MOTHER ALL PRESENT FOR THE NEUROLOGIST VISIT; THEY WERE ABLE TO ASK QUESTIONS AND STATED THEY HAVE NO FURTHER QUESTIONS AT THIS TIME. PT SLEEPING AT THIS TIME WITH ALL OF THE AFORE MENTIONED FAMILY AT THE BEDSIDE. PT LEFT ISDED NEGLECT AND WEAKNESS INCREASED IN THE MIDDLE OF THE DAY TODAY, SEE SHIFT ASSESSMENT DONE ONCE IN THE MORNING AND THEN AGAIN AFTER THE CHANGE.
[2019-01-25 05:06] LABS: BASOPHILS ABSOLUTE AUTO 0.01 K/mm3 (0.00-0.23); BASOPHILS PERCENT AUTO 0 % (0-2); EOSINOPHILS ABSOLUTE AUTO 0.02 K/mm3 (0.00-0.68); EOSINOPHILS PERCENT AUTO 0 % (0-6); Hematocrit 25.7 % (37.0-53.0); Hemoglobin 8.9 g/dL (13.5-17.5); IMMATURE GRAN ABSOLUTE AUTO 0.05 K/mm3 (0.00-0.10); IMMATURE GRAN PERCENT AUTO 1 % (0-1); LYMPHOCYTES ABSOLUTE AUTO 1.65 K/mm3 (0.84-5.20); LYMPHOCYTES PERCENT AUTO 31 % (21-46); MONOCYTES ABSOLUTE AUTO 0.32 K/mm3 (0.16-1.47); MONOCYTES PERCENT AUTO 6 % (4-13); Mean Corpuscular HGB Conc 34.6 g/dL (31.5-36.5); Mean Corpuscular Volume 98 fL (80-100); Mean Platelet Volume 9.3 fL (9.1-12.4); NEUTROPHILS ABSOLUTE AUTO 3.31 K/mm3 (1.96-9.15); NEUTROPHILS PERCENT AUTO 62 % (41-73); Platelet Count 145 K/mm3 (150-400); RDW Coefficient Variation 19.3 % (11.7-14.2); RDW Standard Deviation 69.8 fL (35.1-46.3); Red Blood Cell Count 2.62 M/mm3 (4.30-5.90); White Blood Cell Count 5.36 K/mm3 (4.00-11.30)
[2019-01-25 05:29] LABS: Albumin, Blood 2.5 g/dL (3.4-5.0); Anion Gap 6 mmol/L (6-16); Blood Urea Nitrogen 19 mg/dL (8-24); Bun/Creatinine Ratio 27.8 (12.0-20.0); CO2, Blood 25 mmol/L (21-32); Calcium, Blood 8.2 mg/dL (8.5-10.1); Chloride, Blood 98 mmol/L (98-108); Creatinine, Blood 0.68 mg/dL (0.60-1.20); Glomerular Filtration Rate >60 (60-); Glucose, Blood 84 mg/dL (70-99); Phosphorus, Blood 2.7 mg/dL (2.5-4.9); Potassium, Blood 4.1 mmol/L (3.5-5.5); Sodium, Blood 129 mmol/L (136-145)
--- NOTE | 2019-01-25 07:15 | NUR ---
01/25/19 0600 LOW GRADE TEMP THIS SHIFT. NO SEIZURE ACTIVITY NOTED THIS SHIFT. PT ON CONTINUAL VIDEO MONITORING. NO COMPLAINTS OF S/S OR DISCOMFORT.
--- NOTE | 2019-01-25 07:31 | NUR ---
ASSUMED CARE OF PT- RECIEVED REPORT FROM NIGHT RN SKYLAR. PER REPORT PT SLEPT FOR SIX HOURS STRAIGHT AT THE START OF THE SHIFT. PT STATES HE DOESN'T FEEL LIKE HE GOT THAT MUCH SLEEP, STILL SEEMS GROGGY; HOWEVER PT IS MORE ALERT, EYES OPEN, TALKING TO STAFF, TAKING DIRECTION ETC. PT MOTHER IS AT THE BEDSIDE. PER REPORT NO MORE SEIZURE ACTIVITY WAS SEEN T/O THE NIGHT. PT REQUESTED IBUPROFEN THIS MORNING STATES HE HAS A HEADACHE 4/10 ON THE RIGHT SIDE OF HIS HEAD IN THE TEMPORAL AREA. WILL MEDICATE PRN WITH TYLENOL. 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 PT HAS LEFT SIDED NEGLECT BUT FAR LESS THAN YESTERDAY.
--- NOTE | 2019-01-25 11:14 | NUR ---
ASSISTED PT OUT OF BED AND BACK TO BED. MINIMAL ASSIST, PT ABLE TO FOLLOW DIRECTION, LEFT LEATHER WORKER STRENGTH 75% OF WHAT THE RIGHT IS. PT STILL HAS LEFT SIDED NEGLECT BUT CAN OVERCOME IT WITH INSTRUCTION AND REMINDERS. PT CURRENTLY SLEEPING IN BED, MOTHER JUST LEFT TO GO HOME.
--- NOTE | 2019-01-25 15:07 | NUR ---
PT WALKED THE SOSA WITH PHYSICAL THERAPY AND RN. PT DID THREE LAPS IN THE SCU, AT THE END HE SAID HE WAS QUITE TIRED. WAS ABLE TO WALK WITH STANDBY GUARD ASSIST. WHEN HE RETURNED TO HIS ROOM HE REQUESTED TO GO TO BED. MEDICAL LEGAL INVESTIGATOR WENT TO TAKE VITALS SHORTLY AFTER THAT, HR WAS 61 BP 97/44. POST ACTIVITY PT BP WAS THIS LOW. CALLED DR CONN AND REQUESTED A CALL BACK, REGUARDING PT LOW BP.
--- NOTE | 2019-01-25 19:39 | NUR ---
SHIFT SUMMARY- SPOKE TO DR CONN ABOUT PT BP NO IVF ORDERED AT THIS TIME, ORDER TO PUSH PO FLUIDS. PT FED HIMSELF DINNER WITH MINIMAL CUEING, DROOLING HAS LESTENED WHILE THE PT IS EATING, LEFT DROOP AND NEGLECT STILL NOTABLE HOWEVER PT IS DOING FAR BETTER.
--- NOTE | 2019-01-26 04:15 | NUR ---
SHIFT SUMMARY: PT IS ALERT AND ORIENTED BUT LETHARGIC. PT IS A ONE PERSON ASSIST FOR TRANSFERS. FAMILY AND FRIENDS IN VISITING AT THE START OF SHIFT. PT DOES NOT USE HIS CALL LIGHT, SET THE BED ALARM OFF ON ONE OCCASION. PT SLEPT MUCH OF THE NIGHT WHEN NOT DISTURBED. PT DENIES PAIN, NAUSEA, VOMITING, AND SOB. NO ACUTE CHANGES OR COMPLICATIONS THIS SHIFT. BED IN LOW POSITION, CALL LIGHT WITHIN REACH.
[2019-01-26 05:55] LABS: Albumin, Blood 2.6 g/dL (3.4-5.0); Anion Gap 8 mmol/L (6-16); Blood Urea Nitrogen 21 mg/dL (8-24); Bun/Creatinine Ratio 29.4 (12.0-20.0); CO2, Blood 25 mmol/L (21-32); Calcium, Blood 8.4 mg/dL (8.5-10.1); Chloride, Blood 97 mmol/L (98-108); Creatinine, Blood 0.72 mg/dL (0.60-1.20); Glomerular Filtration Rate >60 (60-); Glucose, Blood 88 mg/dL (70-99); Magnesium, Blood 1.2 mg/dL (1.6-2.4); Phosphorus, Blood 2.6 mg/dL (2.5-4.9); Potassium, Blood 3.8 mmol/L (3.5-5.5); Sodium, Blood 130 mmol/L (136-145)
--- NOTE | 2019-01-26 13:02 | NUR ---
PATIENT DID NOT EAT LUNCH THIS SHIFT HE WAS NOT AWAKE ENOUGH. RN NOTIFIED.
--- NOTE | 2019-01-26 14:17 | NUR ---
THIS AM THIS AM THE PT WAS HARD TO AROUSE OPENED HIS EYES SLOWLY, REPORTED THAT HE WAS TIRED AND JUST DIDNT FEEL GOOD OVERALL, TRIED TO ASSIST THE PT UP TO THE CHAIR HE WAS UNABLE TO SUPPORT HIMSELF ON THE SIDE OF THE BED
--- NOTE | 2019-01-26 17:02 | NUR ---
THE PT IS ALERT VERY DROWSEY AND LETHARGIC THIS AM AND HAS BEEN T/O THE DAY, THE PT ACCORDING TO THE FAMILY IS MUCH WEAKER TODAY COMPARED TO YESTERDAY, THE PT HAD DIFFICULTY SWALLOWING THIS AM. DR. CONN WAS CALLED AND THE PT WAS STARTED ON CLINIMIX TO HELP WITH ELECTROLYTE IMBALANCE, THE PT WAS GIVEN A BED BATH THIS AM AND HAS SLEPT T/O THE DAY SUCTION AT THE BEDSIDE FOR SECRETIONS NEEDED, MULTIPLE FAMILY IS AT THE BEDSIDE, CALL LIGHT IN REACH, WILL CONTINUE TO MONITOR AND ASSESS FOR CHANGES
--- NOTE | 2019-01-26 17:19 | NUR ---
PATIENT DID NOT EAT DINNER THIS SHIFT DUE TO NOT BEING AWAKE ENOUGH TO EAT, RN NOTIFIED.
--- NOTE | 2019-01-27 00:54 | NUR ---
PT HAS SHALLOW, SLOW BREATHING. DOES NOT APPEAR TO SHOW DISCOMFORT, SKIN IS PALE. PT COMFORT MANAGED TO FAMILY'S APPROVAL AT THIS TIME. MAINTENANCE WORKER [employer] [place] MADE AWARE THAT PT APPEARS CLOSE TO PASSING. WILL CTM PT AND FAMILY NEEDS.
--- NOTE | 2019-01-27 03:59 | NUR ---
REPORT RECIEVED FROM DAY RN AVERY OUTSIDE OF PT ROOM. AVERY REPORTS THAT PT BP HAS BEEN HYPOTENSIVE AND PT VERY LETHARGIC, AND WEAK TODAY. HE ALSO REPORTS THAT DR. KAUR HAS BEEN CALLED TO COME CHECK ON PT STATUS. PER AVERY PT WAKES AND IS ABLE TO ANSWER SOME QUESTIONS. DR. CONN IN TO SEE PT AT ABOUT 1958, SEE MD ASSESSMENT, PT MADE DNR. DR. CONN ALSO ASKED AT THIS TIME BY THIS RN ABOUT PT STATUS AND CONSIDERING COMFORT CARE. DR. CONN ENCOURAGED MORE MONITORING AND GIVING FENTANYAL FOR PAIN.
--- NOTE | 2019-01-27 04:12 | NUR ---
AT ABOUT 1999 FULL PT ASSESSMENT COMPLETED, PT HAD VIEW SCORE OF 5 AT 1941, DR. CONN AWARE OF THESE VITALS, AND AT 1999 VIEW SCORE IS 7. PT VITAL SIGNS NOT SHOWING MUCH IMPROVEMENT AFTER GIVEN FENTANAYL ORDERED BY [place] AND PT IS LETHARGIC, IN VISABLE DISTRESS, AND NOT RESPONDING TO QUESTIONS OR OPENING EYES. MANY FAMILY MEMBERS AT BEDSIDE AND FAMILY MADE AWARE THAT A RAPID RESPONSE WOULD NEED TO BE CALLED BY THIS RN BECAUSE OF THE PT'S STATUS. PT FAMILY REFUSED A RAPID RESPONSE TO BE CALLED AT THIS TIME AND ASKED THAT PT BE PUT ON COMFORT MEASURES. MILK BOTTLING MACHINE OPERATOR [place] NOTIFIED OF PT STATUS, AND CHOICE OF FAMILY TO NOT CALL A RR. HANY MCCORMACK,NOTIFIED OF PT STATUS SINCE SHIFT START AND TREND WELL PT FAMILY COMFORT WISHES. HANY MCCORMACK VERBALIZED MEDICATION ORDERS FOR COMFORT AND SAYS THAT HE WILL BE BY TO SEE THE PT AND PUT IN COMFORT CARE ORDERS AT HIS NEXT AVALIBILITY. WILL CONTINUE TO MONITOR PT AND FAMILY FOR COMFORT.
--- NOTE | 2019-01-27 04:29 | NUR ---
HANY APPLICATION RELEASE MANAGER ABLE TO WRITE CC ORDERS AT ABOUT 2229. PT GIVEN MEDS PER EMAR FOR COMFORT AND FAMILY MEMBERS IN ROOM. STAFF OFFERED TO TURN AND CHANGE PT, BUT PT FAMILY REFUSED X2. AT 2350 PT PASSED, [place] HAYDEN RN MADE AWARE AND NURSING DEPARTMENT OF SOCIOLOGY CHAIR CALLED. DR. PANIAGUA ALSO MADE AWARE.
== END 2019-01-26 23:50 | DRG 871 ==
LOC: ER 21:00 → MEDS 21:01
PROVIDERS: Emergency Medicine; Internal Medicine; ADMIT Internal Medicine
DX: A41.9 Sepsis, unspecified organism (principal); G93.41 Metabolic encephalopathy; I63.9 Cerebral infarction, unspecified; E87.2 Acidosis; E87.1 Hypo-osmolality and hyponatremia; C78.7 Secondary malignant neoplasm of liver and intrahepatic bile duct; C77.1 Secondary and unspecified malignant neoplasm of intrathoracic lymph nodes; C79.89 Secondary malignant neoplasm of other specified sites; C78.02 Secondary malignant neoplasm of left lung; C78.01 Secondary malignant neoplasm of right lung; G81.94 Hemiplegia, unspecified affecting left nondominant side; E86.0 Dehydration; E87.6 Hypokalemia; C01 Malignant neoplasm of base of tongue; I10 Essential (primary) hypertension; C13.9 Malignant neoplasm of hypopharynx, unspecified; E78.00 Pure hypercholesterolemia, unspecified; R56.9 Unspecified convulsions; D64.81 Anemia due to antineoplastic chemotherapy
CPT/HCPCS: 36415; 36430; 70450; 70551; 70553; 71046; 80048; 80053; 80061; 80069; 81003; 82550; 82607; 82728; 82746; 83540; 83550; 83605; 83735; 84145; 84300; 85025; 85027; 86850; 86900; 86901; 86923; 87040; 92526; 92610; 93005; 93010; 93306; 93880; 94640; 94760; 95819; 96360; 96361; 96365; 96366; 96367; 96372; 96376; 97110; 97112; 97116; 97162; 97166; 97530; 97535; 99285-25; A9270; A9577; G0378; G0515; J0456; J1650; J1953; J2060; J2405; J2543; J3010; J3475; J7030; J7040; J7050; J7060; P9016